=== PATIENT | female | born 1985 | race Caucasian/White ===

== ENCOUNTER 2017-01-20 06:48 | Inpatient (IN) | payer OTHER ==
[2017-01-20] MEDS ORDERED: Dibucaine 1% 28.35 GM TUBE PR PRN (07:45)
[2017-01-20] MEDS ORDERED: Witch Hazel PAD* JAR TOPICAL PRN (07:45)
[2017-01-20] MEDS: Ibuprofen TAB* 600 MG PO PRN ×3 (08:30→20:26)
[2017-01-20] MEDS: Docusate CAP* 100 MG PO SCH ×3 (08:30→20:26)
[2017-01-21] MEDS: Ibuprofen TAB* 600 MG PO PRN ×2 (03:25→09:37)
[2017-01-21 07:10] LABS: Hematocrit 34 % (35-47); Hemoglobin 11.8 g/dl (12.0-16.0); Mean Corpuscular HGB Conc 34 g/dl (31-36); Mean Corpuscular Hemoglobin 30 pg (27-31); Mean Corpuscular Volume 87 fL (80-97); Mean Platelet Volume 9 um3 (7.4-10.4); Red Blood Count 3.93 10^6/ul (4.0-5.4); Red Cell Distribution Width 14 % (10.5-15); White Blood Count 13.3 10^3/ul (3.5-10.8)
[2017-01-21 08:11] VITALS: BP 92/48
[2017-01-21] MEDS ORDERED: Ferrous Gluconate TAB* 324 MG TAB PO SCH (09:00)
[2017-01-21] MEDS: Docusate CAP* 100 MG PO SCH (09:38)
[2017-01-22] MEDS ORDERED: Levothyroxine TAB* 125 MCG TAB PO SCH (06:00)
== END 2017-01-21 13:28 | disposition home or self-care (01) | DRG 560 ==
LOC: MCHOBOUT 06:48 → MCHOB 07:05
PROVIDERS: ADMIT Nurse Practitioner; ATTEND Nurse Practitioner
PROC: 0KQM0ZZ Repair Perineum Muscle, Open Approach (ICD-10-PCS; principal; 2017-01-20)
PROC: 10E0XZZ Delivery of Products of Conception, External Approach (ICD-10-PCS; 2017-01-20)
PROC: 4A1HX4Z Monitoring of Products of Conception, Cardiac Electrical Activity, External Approach (ICD-10-PCS; 2017-01-20)
DX: O48.0 Post-term pregnancy (principal); E03.9 Hypothyroidism, unspecified; Z3A.40 40 weeks gestation of pregnancy; Z37.0 Single live birth; O99.284 Endocrine, nutritional and metabolic diseases complicating childbirth; O70.1 Second degree perineal laceration during delivery
CPT/HCPCS: 36415; 85025; A9270-GY

== ENCOUNTER 2018-07-03 07:15 | Emergency (ER) | payer BC ==
[2018-07-03 07:29] VITALS: BP 110/59
--- NOTE | 2018-07-03 07:50 | UC ---
Throat Pain/Nasal Chandana HPI - HPI Summary HPI Summary: 7 days of uri symptoms. The "whole family" has had viral illness. She then started to have a bad sore throat starting on Wednesday. No fever or chills. She has had some hoarse voice. She is generally healthy. - History of Current Complaint Chief Complaint: UCGeneralIllness Stated Complaint: SORE THROAT Time Seen by Provider: 07/03/18 07:20 Hx Obtained From: Patient Hx Last Menstrual Period: 06/29/18 Onset/Duration: Gradual Onset, Lasting Days Severity: Moderate Pain Intensity: 9 Cough: Nonproductive Associated Signs & Symptoms: Positive: Dysphagia, Hoarseness. Negative: Fever, Vomiting, Rash - Epiglottits Risk Factors Epiglottis Risk Factors: Negative - Allergies/Home Medications Allergies/Adverse Reactions: Allergies Allergy/AdvReac Type Severity Reaction Status Date / Time MS Dextromethorphan AdvReac Intermediate See Comment Verified 07/03/18 07:30 [From NyQuil Nighttime Cold/Flu Medicine] MS Doxylamine AdvReac Intermediate See Comment Verified 07/03/18 07:30 [From NyQuil Nighttime Cold/Flu Medicine] MS Ethanol AdvReac Intermediate See Comment Verified 07/03/18 07:30 [From NyQuil Nighttime Cold/Flu Medicine] PMH/Surg Hx/FS Hx/Imm Hx Previously Healthy: Yes - Surgical History Surgical History: Yes Surgery Procedure, Year, and Place: uterine polyp removed - Family History Known Family History: Positive: None - Social History Lives: With Family Alcohol Use: None Substance Use Type: None Smoking Status (MU): Never Smoked Tobacco - Immunization History Most Recent Influenza Vaccination: declined Most Recent Tetanus Shot: tdap july 2010 Most Recent Pneumonia Vaccination: never Review of Systems All Other Systems Reviewed And Are Negative: Yes ENT: Positive: Sore Throat, Sinus Congestion Respiratory: Positive: Cough Physical Exam Triage Information Reviewed: Yes Appearance: Well-Appearing, Well-Nourished, Pain Distress - Obvious pain with swallowing. Vital Signs: Initial Vital Signs Temp 97.6 F 07/03/18 07:26 Pulse 75 07/03/18 07:26 Resp 16 07/03/18 07:26 BP 110/59 07/03/18 07:26 Pulse Ox 99 07/03/18 07:26 Vital Signs Reviewed: Yes Eye Exam: Normal Eyes: Positive: Conjunctiva Clear ENT: Positive: Pharynx normal, Nasal congestion, TMs normal, Hoarse voice, Uvula midline. Negative: Pharyngeal erythema, Nasal drainage, TM bulging, TM dull, TM red, Tonsillar swelling, Tonsillar exudate, Trismus, Sinus tenderness Neck: Positive: Supple, Tenderness @ - William submandibular glands but not boggy or fluctuant. William tonsils slightly enlarged. No assymetry or abcess.. Negative : Nuchal Rigidity Respiratory: Positive: Lungs clear, Normal breath sounds, No respiratory distress, No accessory muscle use. Negative: Respiratory distress, Decreased breath sounds, Accessory muscle use, Crackles, Rhonchi, Stridor, Wheezing, Expiration Cardiovascular: Positive: No Murmur, Pulses Normal. Negative: Brisk Capillary Refill Abdomen Description: Positive: No Organomegaly, Soft. Negative: Distended, Guarding Musculoskeletal: Positive: Strength Intact, ROM Intact. Negative: No Edema Neurological: Positive: Alert, Muscle Tone Normal. Negative: Fatigued Psychological: Positive: Age Appropriate Behavior Skin: Negative: Rashes Throat Pain/Nasal Course/Dx - Differential Dx/Diagnosis Provider Diagnosis: URI (upper respiratory infection), Acute pharyngitis Discharge - Sign-Out/Discharge Documenting (check all that apply): Patient Departure All imaging exams completed and their final reports reviewed: No Studies - Discharge Plan Condition: Good Disposition: HOME Prescriptions: Amoxicillin PO (*) [Amoxicillin 875 MG (*)] 875 mg PO BID #14 tab Dexamethasone TAB* [Decadron TAB*] 4 mg PO DAILY #3 tab Patient Education Materials: Pharyngitis (ED) Referrals: Jacinda Shetty PA [Primary Care Provider] - If Needed Additional Instructions: Tea with honey, motrin 600 three times a day, salt water gargle, tea gargle. Fill antibiotic if not better in three days. - Billing Disposition and Condition Condition: GOOD Disposition: Home
== END 2018-07-03 07:48 | disposition home or self-care (01) ==
LOC: UCCORT 07:15
DX: J02.9 Acute pharyngitis, unspecified (principal); Z88.8 Allergy status to other drugs, medicaments and biological substances
CPT/HCPCS: 99212; G0463

== ENCOUNTER 2019-05-23 18:23 | Emergency (ER) | payer BC, OTHER ==
--- NOTE | 2019-05-23 19:54 | UC ---
FLU HPI - HPI Summary HPI Summary: 34 yo female presents with flu-like symptoms. She tells me that for the past 3 days she has had a fever, fatigue, body aches, and dry cough. Body aches are severe and she states trouble sleeping due to whole body aching. She has been taking tylenol for her symptoms with mild relief. She is currently 6 months . Did not get a flu shot this year. Denies SOB, chest pain, abdominal pain, n/v/d/c, dysuria, pelvic pain, vaginal bleeding. - History of Current Complaint Stated Complaint: FLU SXS 6 MTHS Time Seen by Provider: 05/23/19 19:54 Hx Obtained From: Patient Hx Last Menstrual Period: 06/29/18 Onset/Duration: Sudden Onset Severity Currently: Moderate Severity Initially: Moderate Pain Intensity: 8 Pain Scale Used: 0-10 Numeric - Allergy/Home Medications Allergies/Adverse Reactions: Allergies Allergy/AdvReac Type Severity Reaction Status Date / Time acetaminophen [From NyQuil] AdvReac See Comment Verified 05/23/19 19:56 dextromethorphan AdvReac See Comment Verified 05/23/19 19:56 [From NyQuil] doxylamine [From NyQuil] AdvReac See Comment Verified 05/23/19 19:56 pseudoephedrine [From NyQuil] AdvReac See Comment Verified 05/23/19 19:56 Home Medications: Home Medications Acetaminophen [Tylenol Extra Strength] 1,000 mg PO ONCE 05/23/19 [History Confirmed 05/23/19] PMH/Surg Hx/FS Hx/Imm Hx Endocrine History: Hypothyroidism - Surgical History Surgical History: Yes Surgery Procedure, Year, and Place: uterine polyp removed - Family History Known Family History: Positive: None - Social History Lives: With Family Alcohol Use: None Substance Use Type: None Smoking Status (MU): Never Smoked Tobacco - Immunization History Most Recent Influenza Vaccination: declined Most Recent Tetanus Shot: tdap july 2010 Most Recent Pneumonia Vaccination: never Review of Systems All Other Systems Reviewed And Are Negative: No Constitutional: Positive: Fever, Fatigue, Other - Body aches Skin: Positive: Negative Eyes: Positive: Negative ENT: Positive: Sore Throat Respiratory: Positive: Cough Cardiovascular: Positive: Negative Gastrointestinal: Positive: Negative Neurological/Mental Status: Positive: Negative Psychological: Positive: Negative Physical Exam - Summary Physical Exam Summary: GENERAL: NAD. WDWN. No pain distress. SKIN: No rashes, sores, lesions, or open wounds. HEENT: Head: AT/NC Eyes: EOM intact. Conjunctiva clear without inflammation or discharge. Ears: Hearing grossly normal. TMs intact, no bulging, erythema, or edema. Nose: Nasal mucosa pink and moist. NTTP maxillary and frontal sinus. Throat: Posterior oropharynx with mild erythema and 2+ tonsillar enlargement. Uvula midline. NECK: Supple. Nontender. No lymphadenopathy. CHEST: CTAB. No r/r/w. No accessory muscle use. Breathing comfortably and in no distress. CV: RRR. Pulses intact. Cap refill <2seconds NEURO: Alert. PSYCH: Age appropriate behavior. Triage Information Reviewed: Yes Vital Signs: Vital Signs: Temp Pulse Resp BP Pulse Ox 99.2 F 86 17 102/58 99 05/23/19 19:54 05/23/19 19:54 05/23/19 19:54 05/23/19 19:54 05/23/19 19:54 Laboratory Tests 05/23/19 05/23/19 20:04 20:21 Influenza B (Rapid) Positive H Group A Strep Rapid Negative Vital Signs Reviewed: Yes Flu Course/Dx - Course Course Of Treatment: POC strep negative. POC flu positive. Rx for tamiflu and advised to continue tylenol as directed for symptoms - Differential Dx/Diagnosis Provider Diagnosis: Influenza Discharge ED - Sign-Out/Discharge Documenting (check all that apply): Patient Departure All imaging exams completed and their final reports reviewed: No Studies - Discharge Plan Condition: Stable Disposition: HOME Prescriptions: Oseltamivir CAP* [Tamiflu CAP*] 75 mg PO BID #10 cap Patient Education Materials: Influenza (ED) Referrals: Erasmo Jarrell DO [Primary Care Provider] - Additional Instructions: FLU TEST POSITIVE TODAY. STREP TEST NEGATIVE. PLEASE CALL YOUR OBGYN AND LET THEM KNOW THAT YOU HAVE THE FLU Most people with the flu recover within one to two weeks without treatment. However, serious complications of the flu can occur. Go to the ER immediately if you: -- You feel short of breath or have trouble breathing -- You have pain or pressure in your chest or stomach -- You have signs of being dehydrated, such as dizziness when standing or not passing urine -- You feel confused -- You cannot stop vomiting or you cannot drink enough fluids There are several groups of people who are at increased risk for flu complications. These include women, young children (<5 years of age and especially <2 years of age), people older than 65 years of age, and people with certain diseases such as chronic lung disease (such as asthma), heart disease, diabetes, immunosuppressing conditions (such as HIV infection or transplantation), and some other diseases. Treat symptoms Treating the symptoms of influenza can help you to feel better but will not make the flu go away faster. -- Rest until the flu is fully resolved, especially if the illness has been severe. -- Fluids Drink enough fluids so that you do not become dehydrated. One way to boiler repair supervisor if you are drinking enough is to look at the color of your urine. Normally, urine should be light yellow to nearly colorless. If you are drinking enough, you should pass urine every three to five hours. -- Acetaminophen (sample brand name: Tylenol) can relieve fever, headache, and muscle aches. Aspirin and medicines that include aspirin (eg, bismuth subsalicylate [sample brand name: Pepto-Bismol]) are not recommended for children under 18 because aspirin can lead to a serious disease called Ame syndrome. -- Cough medicines are not usually helpful; cough usually resolves without treatment. We do not recommend cough or cold medicine for children under age 6 years. - Billing Disposition and Condition Condition: STABLE Disposition: Home
[2019-05-23 19:59] VITALS: BP 102/58
[2019-05-23 20:08] LABS: Influenza B Molecular POSITIVE (Negative)
[2019-05-23] MEDS ORDERED: Oseltamivir CAP* 75 MG CAP PO ONE (20:26)
== END 2019-05-23 20:43 | disposition home or self-care (01) ==
LOC: UCCORT 18:23
DX: J11.1 Influenza due to unidentified influenza virus with other respiratory manifestations (principal); Z88.8 Allergy status to other drugs, medicaments and biological substances
CPT/HCPCS: 87651; 99212; A9270-GY; G0463

== ENCOUNTER 2019-05-25 17:50 | Emergency (ER) | payer OTHER ==
[2019-05-25 19:31] VITALS: BP 105/52
--- NOTE | 2019-05-25 20:01 | UC ---
Throat Pain/Nasal Chandana HPI - HPI Summary HPI Summary: 34-year-old woman comes in with a chief complaint of sinus pressure. Patient has influenza and she's and she is on Tamiflu. She's been having left sided facial pressure with green and bloody rhinorrhea.'s been using over-the- counter medications but the sinusitis symptoms getting worse. She is pain in her upper teeth on the left side. Does have a cough and chest congestion with clear sputum. Patient reports she's been having some chest pain. She reports she's had this chest pain in the past and has had negative stress test. She reports this feels like the same chest pain and she has been having a lot more stress. No shortness of breath. - History of Current Complaint Chief Complaint: UCRespiratory Stated Complaint: CONGESTION Time Seen by Provider: 05/25/19 19:44 Hx Last Menstrual Period: 06/29/18 Pain Intensity: 7 - Allergies/Home Medications Allergies/Adverse Reactions: Allergies Allergy/AdvReac Type Severity Reaction Status Date / Time acetaminophen [From NyQuil] AdvReac See Comment Verified 05/25/19 19:25 dextromethorphan AdvReac See Comment Verified 05/25/19 19:25 [From NyQuil] doxylamine [From NyQuil] AdvReac See Comment Verified 05/25/19 19:25 pseudoephedrine [From NyQuil] AdvReac See Comment Verified 05/25/19 19:25 Home Medications: Home Medications Levothyroxine TAB* [Synthroid 125 MCG TAB*] 125 mcg PO DAILY 05/25/19 [History Confirmed 05/25/19] PMH/Surg Hx/FS Hx/Imm Hx Previously Healthy: Yes Other Cardiovascular History: chest pain with normal stress test - Surgical History Surgical History: Yes Surgery Procedure, Year, and Place: uterine polyp removed - Family History Known Family History: Positive: None - Social History Alcohol Use: None Substance Use Type: None Smoking Status (MU): Never Smoked Tobacco - Immunization History Most Recent Influenza Vaccination: declined Most Recent Tetanus Shot: tdap july 2010 Most Recent Pneumonia Vaccination: never Review of Systems All Other Systems Reviewed And Are Negative: Yes Constitutional: Positive: Other - SEE HPI Skin: Positive: Negative Eyes: Positive: Negative ENT: Positive: Nasal Discharge, Sinus Congestion, Sinus Pain/Tenderness Respiratory: Positive: Cough, Other - SEE HPI Cardiovascular: Positive: Chest Pain Gastrointestinal: Positive: Other - SEE HPI Genitourinary: Positive: Negative Motor: Positive: Negative Neurovascular: Positive: Negative Musculoskeletal: Positive: Negative Neurological/Mental Status: Positive: Headache Psychological: Positive: Anxious Is Patient Immunocompromised?: No Physical Exam Triage Information Reviewed: Yes Appearance: No Pain Distress, Well-Nourished, Ill-Appearing - MILD Vital Signs: Initial Vital Signs Temp 98.9 F 05/25/19 19:26 Pulse 86 05/25/19 19:26 Resp 20 05/25/19 19:26 BP 105/52 05/25/19 19: Pulse Ox 98 05/25/19 19:26 Vital Signs Reviewed: Yes Eye Exam: Normal Eyes: Positive: Conjunctiva Clear ENT: Positive: Pharyngeal erythema, Nasal congestion, Nasal drainage, TMs normal , Sinus tenderness Neck: Positive: Supple Respiratory: Positive: Lungs clear, Normal breath sounds, No respiratory distress Cardiovascular: Positive: RRR Musculoskeletal: Positive: Strength Intact, ROM Intact Neurological: Positive: Alert, Muscle Tone Normal Psychological: Positive: Age Appropriate Behavior Skin Exam: Normal Throat Pain/Nasal Course/Dx - Course Course Of Treatment: Will treat the sinusitis with Augmentin. I recommended not using Sudafed but increasing hydration with oral water and also with netti pot. We discussed the chest pain and she reports this is the same pain she gets when she is stressed and she had a negative stress test for. This time she has no first of breath. Sputum is white. I let the patient know that to evaluate chest pain needed to further testing the emergency department. At this time the plan is that if the chest pain does not improve or for worsens or she has any other symptoms such as shortness of breath she will go to the emergency department. - Differential Dx/Diagnosis Provider Diagnosis: Sinusitis Discharge ED - Sign-Out/Discharge Documenting (check all that apply): Patient Departure All imaging exams completed and their final reports reviewed: No Studies - Discharge Plan Condition: Stable Disposition: HOME Prescriptions: Amoxicillin/Clavulanate TAB* [Augmentin TAB 875*] 875 mg PO BID #20 tab Patient Education Materials: Chest Pain (ED), Sinusitis (ED) Referrals: Erasmo Jarrell DO [Primary Care Provider] - Additional Instructions: FOLLOW UP WITH YOUR DOCTOR. GET REEVALUATED SOONER IF NOT IMPROVED OR WORSE OR ANY QUESTIONS OR CONCERNS. IF YOUR CHEST PAIN PERSISTS OR WORSENS OR IF YOU HAVE SHORTNESS OF BREATH, YOU FEEL ILL OR ANY OTHER CONCERNS, GO TO THE EMERGENCY DEPARTMENT. - Billing Disposition and Condition Condition: STABLE Disposition: Home
== END 2019-05-25 20:10 | disposition home or self-care (01) ==
LOC: UCCORT 17:50
DX: O99.519 Diseases of the respiratory system complicating pregnancy, unspecified trimester (principal); J32.9 Chronic sinusitis, unspecified; R07.9 Chest pain, unspecified; O99.89 Other specified diseases and conditions complicating pregnancy, childbirth and the puerperium; R51 Headache; Z88.8 Allergy status to other drugs, medicaments and biological substances
CPT/HCPCS: 99212; G0463